=== PATIENT | male | born 1970 | race Hispanic/Latino ===

== ENCOUNTER → 2023-07-22 | Emergency (ER) | payer OTHER ==
[~2023-07-22] MED LIST: DIPHENHYDRAMINE 50 MG/ML VIAL ONE; FAMOTIDINE 20 MG/2 ML VIAL IV ONE; KETOROLAC 30 MG/ML INJ ONE; METHOCARBAMOL 1,000 MG/10 ML VIAL ONE; METHYLPREDNISOLONE 125 MG INJ ONE; MORPHINE 4 MG/ML SYR ONE; NA CHLORIDE 0.9% 100 ML ONE; ONDANSETRON 4 MG/2 ML VIAL ONE
[2023-07-22 19:41] LABS: Protime INR 1.09
[2023-07-22 19:47] LABS: Absolute Lymphocytes (CBC) 1.2 K/uL (0.7-4.9); Basophils % 0.3 % (0-1.3); Hematocrit 44.1 % (39.6-49.0); Lymphocytes % 8.7 % (15.3-44.8); MCV 86.5 fL (80-100); MPV 7.6 fL (7.6-11.3); Platelets 248 thou/uL (152-406)
[2023-07-22 19:53] LABS: Albumin 4.5 g/dL (3.4-5.0); Albumin/Globulin Ratio 1.6 (1.1-1.8); Bilirubin Direct 0.2 mg/dL (0-0.2); Bilirubin Indirect, Calculated 0.7 mg/dL (0.2-0.8); Bilirubin Total 0.9 mg/dL (0.2-1.0); Protein, Total 7.3 g/dL (6.4-8.2)
--- NOTE | 2023-07-22 20:33 | RAD REPORT ---
EXAM DESCRIPTION: CTAbdomen Pelvis Wo Contrast - 07/22/2023 8:19 pm CLINICAL HISTORY: crush injury COMPARISON: ABDOMEN W CONTRAST dated 07/19/2011; ABDOMEN W CONTRAST dated 05/24/2008; CT ABD PELVIS W CO NTRAST dated 12/29/2007; CT ABD PELVIS W CONTRAST dated 05/29/2007; Pelvis Angio dated 07/22/2023; Lower Ext Angio dated 07/22/2023 TECHNIQUE: CT of the abdomen and pelvis was performed. All CT scans are performed using dose optimization technique as appropriate and may include automated exposure control or mA/KV adjustment according to patient size. FINDINGS: Lower chest: No acute abnormality. Liver: No acute abnormality or suspicious lesions. Hepatic steatosis. Biliary: No biliary ductal dilatation. Stomach: No significant focal abnormality. Duodenum: No significant focal abnormality. Pancreas: No significant abnormality. Spleen: No significant abnormality. Adrenal: No suspicious lesions. Kidney/ureter: No hydronephrosis. No renal calculi. Intermediate attenuation left upper pole renal le elena which measures 16 mm. In 2012, this lesion measured 7 millimeters. It is most consistent with a slow-growing cyst that is likely hemorrhagic or proteinaceous. Retroperitoneum: No retroperitoneal adenopathy. Vascular: No aneurysm. Bowel: No significant focal abnormality. Peritoneum: No ascites or free air. Small fat containing umbilical hernia. Bladder: Grossly unremarkable. Reproductive: No adnexal masses. Bones: No acute fracture. 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 Other: n/a IMPRESSION: No acute intra-abdominal or pelvic finding.
--- NOTE | 2023-07-22 20:36 | RAD REPORT ---
EXAM DESCRIPTION: CTPelvis Angio - 07/22/2023 8:17 pm CLINICAL HISTORY: No COMPARISON: No comparisons TECHNIQUE: CTA of the pelvis was performed. All CT scans are performed using dose optimization technique as appropriate and may include automated exposure control or mA/KV adjustment according to patient size. FINDINGS: Retroperitoneum: No retroperitoneal adenopathy. Vascular: No aneurysm. Bowel: No significant focal abnormality. Peritoneum: No ascites or free air. Fat containing umbilical hernia. Bladder: Grossly unremarkable. Reproductive: No adnexal masses. Bones: No acute fracture. Subcutaneous stranding in the subcutaneous tissues of the new right anterio r thigh. Other: n/a IMPRESSION: Major arterial structures in the pelvis are unremarkable.
--- NOTE | 2023-07-22 20:38 | RAD REPORT ---
EXAM DESCRIPTION: RAD - Femur Right - 07/22/2023 8:32 pm CLINICAL HISTORY: crush injury COMPARISON: No comparisons FINDINGS/IMPRESSION: No acute fracture. No malalignment. No significant focal degenerative changes.
--- NOTE | 2023-07-22 20:38 | RAD REPORT ---
EXAM DESCRIPTION: RAD - Tib Fib Right - 07/22/2023 8:32 pm CLINICAL HISTORY: crush injury COMPARISON: No comparisons FINDINGS/IMPRESSION: No acute fracture. No malalignment. No significant focal degenerative changes.
--- NOTE | 2023-07-22 20:38 | RAD REPORT ---
EXAM DESCRIPTION: CTLower Ext Angio - 07/22/2023 8:19 pm CLINICAL HISTORY: crush injury COMPARISON: Tib Fib Right dated 07/22/2023; Femur Right dated 07/22/2023 TECHNIQUE: CTA of the right lower extremity was performed All CT scans are performed using dose optimization technique as appropriate and may include automated exposure control or mA/KV adjustment according to patient size. FINDINGS: The right common femoral artery, superficial femoral artery, popliteal artery, and through frontal vessels are are widely patent. No dissection or evidence of traumatic injury identified. Sof t tissue stranding located superficially in the anterior right thigh. No evidence of active bleeding. IMPRESSION: CTA of the right lower extremity is within normal limits. No occlusion or evidence of tr aumatic arterial injury.
--- NOTE | 2023-07-22 22:45 | ER ---
Nurse's Notes [facility] Name: Inocencio Sharp Jr Age: 52 yrs Sex: Male : 1970 Arrival Date: 07/22/2023 Time: 19:05 Bed 18 Private MD: Diagnosis: Crushing injury of right thigh, initial encounter Presentation: 07/21 19:09 Chief complaint: EMS states: Pt's smoke stack fell over on his right leg while he was kd3 trying to build a new stand for it. Pt was trapped under the smoker for approximately an hour before his came out to the garage and called 911. It took 4 fire fighters to lift the smoker off of the patient. Pt is able to move the right lower extremity and still has feeling. Pt reports 9/10 pain with movement. there is no obvious deformity to the leg. Coronavirus screen: Vaccine status: Patient reports being unvaccinated. Ebola Screen: No symptoms or risks identified at this time. Initial Sepsis Screen: Does the patient meet any 2 criteria? No. Patient's initial sepsis screen is negative. Does the patient have a suspected source of infection? No. Patient's initial sepsis screen is negative. Risk Assessment: Do you want to hurt yourself or someone else? Patient reports no desire to harm self or others. Onset of symptoms was July 22, 2023. 19:09 Method Of Arrival: EMS: [place] [facility] kd3 19:09 Acuity: BOB 3 kd3 Triage Assessment: 19:13 General: Appears uncomfortable, Behavior is calm, cooperative. Pain: Complains of pain kd3 in right leg. Historical: - Allergies: 19:13 No Known Allergies; kd3 - Immunization history:: Adult Immunizations up to date. - Social history:: Smoking status: Patient denies any tobacco usage or history of. Screenin:49 [facility] ED Fall Risk Assessment (Adult) History of falling in the last 3 months, kd3 including since admission No falls in past 3 months (0 pts) Confusion or Disorientation No (0 pts) Intoxicated or Sedated No (0 pts) Impaired Gait No (0 pts) Mobility Assist Device Used No (0 pt) Altered Elimination No (0 pt) Score/Fall Risk Level 0 - 2 = Low Risk Maintained a safe environment. Abuse screen: Denies threats or abuse. Denies injuries from another. Nutritional screening: No deficits noted. Tuberculosis screening: No symptoms or risk factors identified. Assessment: 19:48 General: Pt transferred to CT via stretcher. Pt medicated for pain and pre medicated kd3 for allergic reaction to iodine prior to ct scan. . 20:43 General: Appears in no apparent distress. Behavior is calm, cooperative. Neuro: Level kd3 of Consciousness is awake, alert, obeys commands, Oriented to person, place, time, situation. Cardiovascular: Patient's skin is warm and dry. Respiratory: Airway is patent Trachea midline Respiratory effort is even, unlabored, Respiratory pattern is regular, symmetrical. 23:02 Reassessment: Patient and/or family updated on plan of care and expected duration. Pain tm6 level reassessed. Patient is alert, oriented x 3, equal unlabored respirations, skin warm/dry/pink. discharge pending completion of IV med. Vital Signs: 19:09 BP 157 / 91; Pulse 87; Resp 16; Temp 98.1(O); Pulse Ox 98% on R/A; Weight 95.25 kg; kd3 Height 5 ft. 6 in. ; Pain 9/10; 20:45 BP 159 / 74; Pulse 94; Resp 17; Pulse Ox 97% on R/A; kd3 23:03 BP 136 / 86; Pulse 95; Pulse Ox 97% on R/A; Pain 0/10; tm6 23:53 BP 123 / 76; Pulse 97; Resp 21; Temp 98(TE); Pulse Ox 97% on R/A; Pain 0/10; tm6 19:09 Body Mass Index 33.89 (95.25 kg, 167.64 cm) kd3 19:09 Pain Scale: Adult kd3 23:03 Pain Scale: Adult tm6 23:53 Pain Scale: Adult tm6 ED Course: 19:07 Patient arrived in ED. ty 19:09 Devaughn King PA is PHCP. cp 19:09 Milton Sommers DO is Attending Physician. cp 19:13 Triage completed. kd3 19:13 Arm band placed on right wrist. kd3 19:36 Eleonora Arrieta, RN is Primary Nurse. kd3 19:36 Basic Metabolic Panel Sent. kd3 19:36 CBC with Diff Sent. kd3 19:36 LFT's Sent. kd3 19:36 PT-INR Sent. kd3 19:50 Patient has correct armband on for positive identification. kd3 20:19 CT Pelvis Angio In Process Unspecified. EDMS 20:21 CT Abd/Pelvis - Without Contrast In Process Unspecified. EDMS 20:21 Lower Ext Angio In Process Unspecified. EDMS 20:33 XRAY Femur RIGHT In Process Unspecified. EDMS 20:33 XRAY Tib Fib RIGHT In Process Unspecified. EDMS 23:54 Provided Education on: crutch walking. tm6 23:54 No provider procedures requiring assistance completed. IV discontinued, intact, tm6 bleeding controlled, No redness/swelling at site. Pressure dressing applied. 23:54 Crutch training done. tm6 Administered Medications: 19:36 Drug: morphine IVP or IV 4 mg IVP once over 4 mins Route: IVP; Infused Over: 4 mins; kd3 Site: right antecubital; 19:36 Drug: Ondansetron IVP 4 mg IVP once; over 2 minutes Route: IVP; Site: right antecubital;kd3 19:43 Drug: MethylPrednisoLONE IVP 125 mg IVP once Route: IVP; Site: right antecubital; kd3 19:43 Drug: Famotidine IVP 20 mg IVP once; dilute with 10 mL 0.9% NaCl; give over 2 minutes kd3 Route: IVP; Site: right antecubital; 19:43 Drug: diphenhydrAMINE IVP 25 mg IVP once Route: IVP; Site: right antecubital; kd3 22:34 Drug: Ketorolac IVP 15 mg IVP once Route: IVP; Site: right antecubital; kd3 22:49 Drug: Methocarbamol IVPB 1 grams IVPB once over 1 hrs; (mix in NS 100 mL) Route: IVPB; kd3 Infused Over: 1 hrs; Site: right antecubital; Medication: 19:50 VIS not applicable for this client. kd3 Outcome: 22:45 Discharge ordered by . cp 23:54 Discharged to home via wheelchair, with crutches, with family, tm6 23:54 Condition: stable 23:54 Discharge instructions given to patient, family, Instructed on discharge instructions, follow up and referral plans. medication usage, crutch walking, Demonstrated understanding of instructions, follow-up care, medications, crutch walking, Prescriptions given X 3, 23:55 Patient left the ED. tm6 Signatures: Dispatcher [employer] EDMS Devaughn King PA PA cp Doucette, Kyli RN RN kd3 Phuc Hughes RN RN tm6 Robert Herbert
--- NOTE | 2023-07-22 22:45 | EDPHYS ---
Physician Documentation [facility] Name: Inocencio Sharp Jr Age: 52 yrs Sex: Male : 1970 Arrival Date: 07/22/2023 Time: 19:05 Bed 18 Private MD: ED Physician Milton Sommers HPI: 07/21 19:20 This 52 yrs old Male presents to ER via EMS with complaints of Crush Injury To cp Leg. 19:20 Trauma demographics: County: The injury occurred in [place] Location of Injury: The cp injury occurred at home, Date: July 22, 2023. Mechanism of injury: crush injury. Onset: The symptoms/episode began/occurred over an hour ago. Patient reports he was working on metal grill when it fell and landed on right leg and pelvis area. Patient reports he was trapped underneath grill for at least an hour until found him and called EMS. EMS reports 4 individual required to free patient from under grill. Historical: - Allergies: 19:13 No Known Allergies; kd3 - Immunization history:: Adult Immunizations up to date. - Social history:: Smoking status: Patient denies any tobacco usage or history of. ROS: 19:25 Constitutional: Negative for body aches, chills, fever, poor PO intake, cp 19:25 Cardiovascular: Negative for chest pain, palpitations, cp 19:25 Respiratory: Negative for cough, shortness of breath, wheezing, 19:25 Abdomen/GI: Negative for abdominal pain, vomiting, diarrhea, constipation, 19:25 Back: Negative for pain at rest, pain with movement, 19:25 MS/extremity: Positive for ecchymosis, pain, swelling, tenderness, of the right leg, Negative for decreased range of motion, deformity, 19:25 Neuro: Negative for altered mental status, headache, weakness, 19:25 All other systems are negative, Exam: 19:30 Constitutional: The patient appears in no acute distress, alert, awake, cp non-diaphoretic, non-toxic, well developed, well nourished, in obvious pain, uncomfortable, 19:30 Head/Face: Normocephalic, atraumatic. cp 19:30 Eyes: Periorbital structures: appear normal, Conjunctiva: normal, no exudate, no injection, Sclera: no appreciated abnormality, Lids and lashes: appear normal, bilaterally, 19:30 ENT: External ear(s): are unremarkable, Nose: is normal, Mouth: Lips: moist, Oral mucosa: pink and intact, moist, Posterior pharynx: Airway: no evidence of obstruction, patent, 19:30 Neck: C-spine: vertebral tenderness, is not appreciated, crepitus, is not appreciated, ROM/movement: is normal, is supple, without pain, no range of motions limitations, 19:30 Chest/axilla: Inspection: normal, Palpation: is normal, no crepitus, no tenderness, 19:30 Cardiovascular: Rate: normal, Rhythm: regular, JVD: is not appreciated, 19:30 Respiratory: the patient does not display signs of respiratory distress, Respirations: normal, no use of accessory muscles, no retractions, labored breathing, is not present, Breath sounds: are clear throughout, no decreased breath sounds, no stridor, no wheezing, 19:30 Abdomen/GI: Inspection: abdomen appears normal, Bowel sounds: active, all quadrants, Palpation: mild abdominal tenderness, in the right lower quadrant and left lower quadrant, rebound tenderness, is not appreciated, 19:30 Back: pain, is absent, ROM is normal, 19:30 Musculoskeletal/extremity: Extremities: grossly normal except: noted in the right leg: pain, tenderness and pain to palpation of right thigh, swelling and ecchymosis noted, ROM: limited passive range of motion due to pain, in the right hip and right knee, Pulses: noted to be 2+ in the right femoral artery and right dorsalis pedis artery, the right leg Sensation intact. Severe pain noted. 19:30 Skin: intact of right leg with minimal abrasions. 19:30 Neuro: Orientation: to person, place \T\ time. Mentation: is normal, Motor: moves all fours, strength is normal, Sensation: no obvious gross deficits, Vital Signs: 19:09 BP 157 / 91; Pulse 87; Resp 16; Temp 98.1(O); Pulse Ox 98% on R/A; Weight 95.25 kg; kd3 Height 5 ft. 6 in. ; Pain 9/10; 20:45 BP 159 / 74; Pulse 94; Resp 17; Pulse Ox 97% on R/A; kd3 23:03 BP 136 / 86; Pulse 95; Pulse Ox 97% on R/A; Pain 0/10; tm6 23:53 BP 123 / 76; Pulse 97; Resp 21; Temp 98(TE); Pulse Ox 97% on R/A; Pain 0/10; tm6 19:09 Body Mass Index 33.89 (95.25 kg, 167.64 cm) kd3 19:09 Pain Scale: Adult kd3 23:03 Pain Scale: Adult tm6 23:53 Pain Scale: Adult tm6 MDM: 20:00 Differential diagnosis: L spine fracture, femur fracture, vascular injury to lower cp extremity, contusion, compartment syndrome, rhabdo. 22:45 Patient medically screened. cp 22:45 Data reviewed: vital signs, nurses notes, lab test result(s), EKG, radiologic studies, cp CT scan, plain films. 22:45 Consideration of Admission/Observation Escalation of care including cp admission/observation considered. I considered the following discharge prescriptions or medication management in the emergency department Medications were administered in the Emergency Department. See MAR. Counseling: I had a detailed discussion with the patient and/or guardian regarding the historical points, exam findings, and any diagnostic results supporting the discharge/admit diagnosis, lab results, radiology results, to return to the emergency department if symptoms worsen or persist or if there are any questions or concerns that arise at home. Response to treatment: the patient's symptoms have markedly improved after treatment, and as a result, I will discharge patient. 07/21 19:15 Order name: Basic Metabolic Panel; Complete Time: 21:46 cp 07/21 21:46 Interpretation: Normal except: CL 108; GLUC 141; BUN 19; CRE 1.53; GFR 54; CA 10.2. cp 07/21 19:15 Order name: CBC with Diff; Complete Time: 21:46 cp 07/21 21:46 Interpretation: Normal except: WBC 13.40; UMBERTO% 81.6; LYM% 8.7; NEUT A 10.9. cp 07/21 19:15 Order name: LFT's; Complete Time: 21:46 cp 03 21:46 Interpretation: Normal except: ALT 65. cp 07/21 19:15 Order name: PT-INR; Complete Time: 21:46 cp 07/21 19:15 Order name: CK; Complete Time: 21:46 cp 07/21 21:47 Interpretation: Abnormal: CPK 407. cp 07/21 21:19 Order name: CREATININE WHOLE BLOOD; Complete Time: 21:46 EDMS 07/21 21:47 Interpretation: Reviewed. cp 07/21 19:15 Order name: CT Pelvis Angio; Complete Time: 21:46 cp 07/21 19:15 Order name: XRAY Femur RIGHT; Complete Time: 21:46 cp 07/21 19:15 Order name: XRAY Tib Fib RIGHT; Complete Time: 21:46 cp 07/21 19:15 Order name: CT Abd/Pelvis - Without Contrast; Complete Time: 21:46 cp 07/21 19:31 Order name: Lower Ext Angio; Complete Time: 21:46 EDMS 07/21 19:15 Order name: EKG; Complete Time: 19:16 cp 07/21 19:15 Order name: Cardiac monitoring; Complete Time: 19:36 cp 07/21 19:15 Order name: EKG - Nurse/Tech; Complete Time: 19:36 cp 07/21 19:15 Order name: IV Saline Lock; Complete Time: 19:36 cp 07/21 19:15 Order name: Labs collected and sent; Complete Time: 19:36 cp 07/21 19:15 Order name: O2 Per Protocol; Complete Time: 19:36 cp 07/21 19:15 Order name: O2 Sat Monitoring; Complete Time: 19:36 cp 07/21 21:52 Order name: Crutches; Complete Time: 22:46 cp 07/21 21:52 Order name: Rigoberto Wrap; Complete Time: 22:46 cp Administered Medications: 19:36 Drug: morphine IVP or IV 4 mg IVP once over 4 mins Route: IVP; Infused Over: 4 mins; kd3 Site: right antecubital; 19:36 Drug: Ondansetron IVP 4 mg IVP once; over 2 minutes Route: IVP; Site: right antecubital;kd3 19:43 Drug: MethylPrednisoLONE IVP 125 mg IVP once Route: IVP; Site: right antecubital; kd3 19:43 Drug: Famotidine IVP 20 mg IVP once; dilute with 10 mL 0.9% NaCl; give over 2 minutes kd3 Route: IVP; Site: right antecubital; 19:43 Drug: diphenhydrAMINE IVP 25 mg IVP once Route: IVP; Site: right antecubital; kd3 22:34 Drug: Ketorolac IVP 15 mg IVP once Route: IVP; Site: right antecubital; kd3 22:49 Drug: Methocarbamol IVPB 1 grams IVPB once over 1 hrs; (mix in NS 100 mL) Route: IVPB; kd3 Infused Over: 1 hrs; Site: right antecubital; Disposition: 07/22 21:14 I was immediately available on-site in the Emergency Department for consultation in the ms3 care of the patient. Disposition Summary: 07/22/23 22:45 Discharge Ordered Notes: Location: Home cp Problem: new cp Symptoms: have improved cp Condition: Stable cp Diagnosis - Crushing injury of right thigh, initial encounter cp Followup: cp - With: Private Physician - When: 2 - 3 days - Reason: Recheck today's complaints Discharge Instructions: - Discharge Summary Sheet cp - Musculoskeletal Pain cp - Quadriceps Contusion cp Forms: - Medication Reconciliation Form cp - Thank You Letter cp - Antibiotic Education cp - Prescription Opioid Use cp - Patient Portal Instructions cp - Leadership Thank You Letter cp Prescriptions: - Diclofenac Sodium 75 mg Oral Tablet Sustained Release - take 1 tablet ORAL route 2 times per day; 30 tablet; Refills: 0, Product cp Selection Permitted - Tramadol 50 mg Oral Tablet - take 1 tablet ORAL route every 8 hours as needed; 12 tablet; Refills: 0, cp Product Selection Permitted - methocarbamol 750 mg Oral tablet - take 1 tablet ORAL route every 6-8 hours; 30 tablet; Refills: 0, Product cp Selection Permitted Signatures: Dispatcher [employer] EDDevaughn Spears PA PA cp Sims, Marcus, DO DO ms3 Eleonora Arrieta, RN RN kd3
[2023-07-23 01:05] VITALS: BP 123/76; TEMP 98; O2SAT 97
== END ==
LOC: ER 19:05
DX: S77.11XA Crushing injury of right thigh, initial encounter (principal)
CPT/HCPCS: 85025; 80048; 36415; 82550; 85610; 82565; 80076; 73706; 72191; 74176; 73552; 73590; 96375; 96374; 99284; Q9967; J1200; J2930; J2405; J2800